=== PATIENT | male | born 1960 | race Hispanic/Latino ===

== ENCOUNTER 2017-04-24 11:59 | Day surgery (SDC) | payer OTHER ==
--- NOTE | 2017-04-24 13:25 | Anesthesia Day of Surgery ---
Anesthesia Day of Surgery - Day of Surgery Patient Examined: Yes Patient H&P Reviewed: Yes Patient is NPO: Yes
--- NOTE | 2017-04-24 13:25 | Anesthesia Consultation ---
Anesthesia Consult and Med Hx Date of service: 04/24/17 - Airway Anesthetic Teeth Evaluation: Good ROM Head & Neck: Adequate Mental/Hyoid Distance: Adequate Mallampati Class: Class II Intubation Access Assessment: Good - Pulmonary Exam CTA: Yes - Cardiac Exam Cardiac Exam: RRR - Pre-Operative Health Status ASA Pre-Surgery Classification: ASA3 Proposed Anesthetic Plan: General - Pulmonary Hx Smoking: No Hx Sleep Apnea: No (BARRIE PRE SCREEN LOW RISK) - Cardiovascular System Hx Hypertension: No Hx Valvular Heart Disease: Yes (MITRAL AND AORTIC) - Other Systems Hx Cancer: No
[2017-04-24] MEDS ORDERED: NACL BACTERIOSTATIC INFILTRATI ONE (13:27)
[2017-04-24] MEDS: LACTATED RINGERS 1,000 ML IV SCH ×2 (13:55→16:39)
[2017-04-24] MEDS ORDERED: PEPCID PO NR (14:00)
[2017-04-24] MEDS ORDERED: VERSED IV NR (14:00)
[2017-04-24] MEDS ORDERED: ANCEF/STERILE WATER 2 GM/20 ML IV NR (15:00)
[2017-04-24] MEDS ORDERED: DIPRIVAN 10 MG/ML IV ONE (15:23)
[2017-04-24] MEDS ORDERED: SUBLIMAZE ONE (15:23)
[2017-04-24] MEDS ORDERED: XYLOCAINE MPF 2% ONE (15:24)
[2017-04-24] MEDS ORDERED: ATROPINE ONE ×2 (15:50→16:08)
[2017-04-24] MEDS ORDERED: ROBINUL ONE (16:08)
--- NOTE | 2017-04-24 16:35 | Post Operative Note ---
Date of procedure: 04/24/17 Pre-op diagnosis: renal stones Post-op diagnosis: same Findings: as above Procedure: in situ eswl Anesthesia: RENETTA Surgeon: HERMINIO MCINTOSH Estimated blood loss: none Pathology: none Condition: stable Disposition: PACU
--- NOTE | 2017-04-24 16:37 | Discharge Summary ---
Short Stay Discharge Plan Activity: other (no straining ) Weight Bearing Status: Full Weight Bearing Diet: low fat, low cholesterol, low salt Special Instructions: other (inc fluids) Follow up with: PRIMARY CARE, [Primary Care Provider] - 7 Days HERMINIO MCINTOSH MD [Staff Physician] - 7 Days
--- NOTE | 2017-04-24 17:05 | Post Anesthesia Evaluation ---
- Post Anesthesia Evaluation Patient Participated: Yes Airway Patent: Yes Stable Respiratory Function: Yes Nausea/Vomiting: No Temp > 96.8F: Yes Pain Manageable: Yes Adequeate Hydration: Yes Anesthesia Complications: No
[2017-04-24] MEDS ORDERED: DILAUDID ONE ×2 (17:06→17:28)
[2017-04-24] MEDS ORDERED: DILAUDID IV PRN (17:17)
--- NOTE | 2017-04-24 18:11 | XRay Report ---
FINAL REPORT EXAM: XR ABDOMEN 1V AP HISTORY: RIGHT RENAL STONE TECHNIQUE: Supine view of the abdomen PRIORS: None. FINDINGS: There a 13 x 9 mm calculus medial to the right renal shadow. This is likely within the right renal pelvis. Several other smaller calcifications deep in the pelvis are probably phleboliths. Some of these are atherosclerotic in etiology. The bowel gas pattern is nonspecific. No free air is identified. Soft tissues have no evidence for mass shadows. The bony structures are intact. IMPRESSION: Calculus located medial to the right renal shadow, likely in the renal pelvis. Nonspecific, nonobstructive bowel gas pattern with no acute process noted.
--- NOTE | 2017-04-24 19:13 | Operative Report ---
PREOPERATIVE DIAGNOSIS: A 1 cm right renal stone. POSTOPERATIVE DIAGNOSIS: A 1 cm right renal stone. PROCEDURE: In situ right lithotripsy. SURGEON: Felipe Salinas MD ANESTHESIA: General. FINDINGS: This is a gentleman who I met in the holding area with his . He had no pain. He has a prominent stone looked like a bullet. It looked quite dense. He now presents for a lithotripsy and I discussed possible stenting. DESCRIPTION OF PROCEDURE: The patient was brought to lithotripsy unit and placed on the table. Following the induction of anesthesia, the stone was easily localized both the AP and oblique image. Shocks were begun at 1 kV, a renal pause was carried out. At about 400 shocks, he started having some ectopy, so we gated him. We went up to 5 and then to 6 kV for about 300 shocks. The patient tolerated the procedure well. There was excellent fragmentation, the stone definitely broke up. So, we decided not to place a stent because he had no pain. Family and the patient understanding he may need staged procedures, may need percutaneous procedures, may need lithotripsy or ureteroscopy. He had absolutely no pain and because it looked like it fragmented, we did not leave a stent. Brought to recovery room after 2500 shocks in stable condition. JOB# [id number] ALESHIA/LAVINIA
[2017-04-24] MEDS ORDERED: ZOFRAN ONE (20:50)
[2017-04-24 21:08] VITALS: BP 120/70
[2017-04-24] MEDS ORDERED: PERCOCET 5/325 PO ONE ×2 (21:18→21:20)
[2017-04-24] MEDS ORDERED: ROXICODONE PO ONE (22:00)
== END 2017-04-24 12:00 | disposition home or self-care (01) ==
LOC: OR 11:59
PROVIDERS: ATTEND Urology
DX: N20.0 Calculus of kidney (principal); I47.1 Supraventricular tachycardia; F17.200 Nicotine dependence, unspecified, uncomplicated; Z98.890 Other specified postprocedural states
CPT/HCPCS: 50590; 74000; J0461; J0690; J1170; J2250; J2405; J2704; J3010; J7120